=== PATIENT | female | born 1965 | race African-American/Black ===

== ENCOUNTER 2022-02-02 11:01 | Emergency (ER) | payer MEDICAID ==
[~2022-02-02] VITALS: Ht 170.2 cm; Wt 82.0 kg
[2022-02-02] MEDS ORDERED: SODIUM CHLORIDE 0.9% 1,000 ML IV ONE (12:15)
[2022-02-02] MEDS ORDERED: DIPHENHYDRAMINE 50MG/ML VIAL IV ONE (12:15)
[2022-02-02] MEDS ORDERED: MECLIZINE 25MG TABLET PO ONE (12:15)
[2022-02-02] MEDS ORDERED: METOCLOPRAMIDE HCL 10MG/2ML VIAL IV ONE (12:15)
[2022-02-02] MEDS ORDERED: KETOROLAC 15MG/ML VIAL IV ONE ×2 (12:15→16:15)
[2022-02-02 12:38] LABS: BASOPHILS % 0.4 % (0.0-2.0); EOSINOPHILS % 0.9 % (0.0-5.0); HEMATOCRIT. 49.1 % (36.0-48.0); HEMOGLOBIN. 16.1 g/dL (12.0-16.0); LYMPHOCYTES % 17.6 % (20.0-50.0); MEAN CORPUSCULAR HEMOGLOBIN 30.8 pg (28.0-32.0); MEAN CORPUSCULAR VOLUME 94.3 fL (81.0-99.0); MEAN PLATELET VOLUME 7.4 fl (7.4-10.4); MONOCYTES % 5.3 % (2.0-8.0); NEUTROPHILS % 75.8 % (40.0-76.0); PLATELET 337 x1000/uL (130-400); RED BLOOD CELL COUNT 5.21 mill/uL (4.2-5.4)
[2022-02-02 12:39] LABS: CHLORIDE 106 mEq/L (98-107)
[2022-02-02] MEDS ORDERED: METOCLOPRAMIDE HCL 10MG/2ML VIAL IV NR (14:15)
[2022-02-02] MEDS ORDERED: DIPHENHYDRAMINE 50MG/ML VIAL IV NR (14:15)
[2022-02-02] MEDS ORDERED: KETOROLAC 15MG/ML VIAL IV NR (14:15)
[2022-02-02] MEDS ORDERED: MECLIZINE 25MG TABLET PO NR (14:30)
[2022-02-02 16:54] VITALS: BP 174/100
[2022-02-02] MEDS ORDERED: ONDA4TAB11 PO (17:06)
[2022-02-02] MEDS ORDERED: MECL-159 MT (17:06)
[2022-02-02] MEDS ORDERED: IBUP-2028 MT (17:06)
== END 2022-02-02 17:30 | disposition home or self-care (01) ==
LOC: ER 11:11 → CANBEDREQ 22:11
DX: R42 Dizziness and giddiness (principal); R51.9 Headache, unspecified
CPT/HCPCS: 36415; 70450; 71045; 80053; 83880; 84484; 85025; 93005; 96361; 96374; 96375; 96376; 99285; J1200; J1885; J2765; J7030; J8597